=== PATIENT | male | born 1985 | race Two or more races ===

== ENCOUNTER 2018-06-11 21:47 | Emergency (ER) | payer MEDICAID ==
--- NOTE | 2018-06-11 22:03 | ED Physician Chart ---
ED Chief Complaint/HPI - Patient Information Date Seen:: 06/11/18 Time Seen:: 21:45 Chief Complaint:: Chest Pain History of Present Illness:: onset x one day of intermittent, sharp, MS type localized C/P with Dyspnea; pt denies trauma, H/As, S/T, neck pain, cough,Abd. 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 Historian:: Patient Review:: Nurse's Note Reviewed ED Review of Systems - Review of Systems General/Constitutional: No fever, No chills, No weight loss, No weakness, No diaphoresis, No edema, No loss of appetite Skin: No skin lesions, No rash, No bruising Head: No headache, No light-headedness Eyes: No loss of vision, No pain, No diplopia ENT: No earache, No nasal drainage, No sore throat, No tinnitus Neck: No neck pain, No swelling, No thyromegaly, No stiffness, No mass noted Cardio Vascular: Chest pain, Palpitations, No PND, No orthopnea, No edema Pulmonary: SOB, No cough, No sputum, No wheezing GI: No nausea, No vomiting, No diarrhea, No pain, No melena, No hematochezia, No constipation, No hematemesis G/U: No dysuria, No frequency, No hematuria, No nacturia Musculoskeletal: No bone or joint pain, No back pain, No muscle pain Endocrine: No polyuria, No polydipsia Psychiatric: No prior psych history, No depression, No anxiety, No suicidal ideation, No homicidal ideation, No auditory hallucination, No visual hallucination Hematopoietic: No bruising, No lymphadenopathy Allergic/Immuno: No urticaria, No angioedema Neurological: No syncope, No focal symptoms, No weakness, No paresthesia, No headache, No seizure, No dizziness, No confusion, No vertigo ED Past Medical History - Past Medical History Obtainable: Yes Past Medical History: No significant medical hx Family History: None Social History: Non Smoker, No Alcohol, No Drug Use, Single Surgical History: None Psychiatricy History: None Medication: Reviewed ED Physical Exam - Physical Examination General/Constitutional: Awake, Well-developed, well-nourished, Alert, No distress, GCS 15, Non-toxic appearing, Ambulatory Head: Atraumatic Eyes: Lids, conjuctiva normal, PERRL, EOMI Skin: Nl inspection, No rash, No skin lesions, No ecchymosis, Well hydrated, No lymphadenopathy ENMT: External ears, nose nl, TM canals nl, Nasal exam nl, Lips, teeth, gums nl , Oropharynx nl, Tonsils nl Neck: Nontender, Full ROM w/o pain, No JVD, No nuchal rigidity, No bruit, No mass, No stridor Other Neck comments:: supple; no meningeal signs; no cervical tenderness; no bruits Respiratory: Nl effort/Exclusion, Clear to Auscultation, No Wheeze/Rhonchi/Rales Cardio Vascular: RRR, No murmur, gallop, rubs, NL S1 S2, Carotid/Femoral/Distal pulses equal bilaterally Other Cardio Vascular comments:: + Chest Wall tenderness which reproduces pt's subjective chest pain GI: No tenderness/rebounding/guarding, No organomegaly, No hernia, Normal BS's, Nondistended, No mass/bruits, No McBurney tenderness, Rectum exam nl Other GI comments:: no pulsatile masses : No CVA tenderness Extremities: No tenderness or effusion, Full ROM, normal strength in all extremities, No edema, Normal digits & nails Neuro/Psych: Alert/oriented, DTR's symmetric, Normal sensory exam, Normal motor strength, Judgement/insight normal, Mood normal, Normal gait, No focal deficits Misc: Normal back, No paraspinal tenderness ED Labs/Radiology/EKG Results - Lab Results Comments:: Reviewed - Radiology Results Comments:: NAD - EKG Interpretations EKG Time:: 21:58 Rate & Rhythm: 74; NSR Comments:: non=specific st-t changes ED Septic Shock - . Is Septic Shock (SBP<90, OR Lactate>4 mmol\L) present?: No ED Reassessment (Disposition) - Reassessment Reassessment:: pt deferred admission; pt chose to sign out AMA; pt is asymptomatic upon discharge Reassessment Condition:: Improved - Diagnosis Diagnosis:: Chest Pain; Dyspnea; Angina Pectoris; Chest Wall Pain; Atypical Chest Pain; Costochondritis; Chest Wall Sprains and Strains - Aftercare/Follow up Instructions Aftercare/Follow-Up Instructions:: Counseled pt regarding lab results/diagnosis & need follow up, Refer to Discharge Instructions, Counseled pt & family regarding lab results/diagnosis & need follow up - Patient Disposition Discharge/Transfer:: Against Medical Advice Condition at Disposition:: Stable, Improved (RTER prn if existing s/s reoccur and/or get worse and/or any other new s/s occur; X-Rays Instructions; ACIs given for all above Dx; Refer to Seismograph Recorder/Meal Cook/Civil Structural Engineer BRANDON; F/U with PMD Today or prn; RTER prn if concerned)
[2018-06-11 22:22] LABS: % BASOPHILS 0.6 % (0.0-2.0); % EOSINOPHILS 3.8 % (0.0-5.0); % LYMPHOCYTES 30.6 % (20.0-50.0); % MONOCYTES 9.7 % (2.0-10.0); % NEUTROPHILS 55.3 % (40.0-80.0); EOSINOPHILE ABSOLUTE 0.3 Th/cmm (0.1-0.4); HEMATOCRIT 42.5 % (41.0-60); HEMOGLOBIN 14.7 gm/dL (12-16); LYMPHOCYTE ABSOLUTE 2.5 Th/cmm (1.5-3.0); MEAN CELL VOLUME 87.3 fl (80-99); MEAN CORPUSCULAR HEMOGLOBIN 30.2 pg (26.0-30.0); MEAN CORPUSCULAR HGB CONC 34.6 pg (28.0-36.0); MEAN PLATELET VOLUME 6.9 fl; MONOCYTE ABSOLUTE 0.8 Th/cmm (0.3-1.0); NEUTROPHILE ABSOLUTE 4.7 Th/cmm (1.8-8.0); PLATELET COUNT 268 Th/cmm (150-400); RED BLOOD COUNT 4.87 Mil/cmm (4.30-5.70); RED CELL DISTRIBUTION WIDTH 11.6 % (11.5-20.0); WHITE BLOOD COUNT 8.3 Th/cmm (4.8-10.8)
[2018-06-11 22:34] LABS: INR 1.13 (0.5-1.4); PROTHROMBIN TIME (TEST) 11.6 SECONDS (9.5-11.5)
[2018-06-11 22:37] LABS: ALB/GLOB RATIO 1.6 (1.0-1.8); ALBUMIN 4.5 gm/dL (4.2-5.5); ALKALINE PHOSPHATASE 68 U/L (34-104); ANION GAP 13.1 (7.0-16.0); BILIRUBIN,TOTAL 0.3 mg/dL (0.3-1.0); BUN - UREA NITROGEN 13 mg/dL (7-25); CALCIUM SERUM 9.7 mg/dL (8.6-10.3); CARBON DIOXIDE 25.3 mEq/L (21.0-31.0); CHLORIDE 102 mEq/L (98-107); CHOLESTEROL 207 mg/dL (<200); CREATININE - SERUM 0.8 mg/dL (0.7-1.3); CREATININE KINASE 110 U/L (30-223); GFR AFRICAN-AMERICAN > 60.0 ml/min (>90); GFR NON AFRICAN-AMERICAN > 60.0 ml/min; GLUCOSE 110 mg/dL (70-105); HDL -HIGH DENSITY LIPOPROTEIN 38 mg/dL (23-92); POTASSIUM SERUM 3.4 mEq/L (3.5-5.1); SGOT 17 U/L (13-39); SGPT/ALT 11 U/L (7-52); SODIUM SERUM 137 mEq/L (136-145); TOTAL PROTEIN,SERUM 7.3 gm/dL (6.0-8.3); TRIGLYCERIDES 310 mg/dL (<150)
[2018-06-11 22:56] LABS: DDIMER QUANT < 100 ng/mL (100-400)
[2018-06-11] MEDS ORDERED: Potassium Chloride 20 mEq ER Tab PO ONE (23:31)
--- NOTE | 2018-06-12 09:08 | Diagnostic Imaging Report ---
Portable chest x-ray History: Chest pain Allowing for portable technique the heart size is normal. No focal pulmonary parenchymal processes. No hilar or mediastinal abnormalities. Impression: No acute abnormalities.
== END 2018-06-11 23:45 | disposition left against medical advice (07) ==
LOC: ER 21:47
DX: I20.9 Angina pectoris, unspecified (principal); M94.0 Chondrocostal junction syndrome [Tietze]; S29.011A Strain of muscle and tendon of front wall of thorax, initial encounter; X58.XXXA Exposure to other specified factors, initial encounter; Y93.89 Activity, other specified; Y92.89 Other specified places as the place of occurrence of the external cause; Y99.8 Other external cause status
CPT/HCPCS: 36415-UA; 71045-TC; 80053-TC; 80061-TC; 82550-TC; 83880-TC; 84484-TC; 85025-TC; 85379-TC; 85610-TC; 93005